=== PATIENT | male | born 1960 | race Caucasian/White ===

== ENCOUNTER 2020-01-31 12:40 | Emergency (ER) | payer OTHER ==
[~2020-01-31] VITALS: Ht 172.7 cm; Wt 74.8 kg
[2020-01-31 13:09] LABS: BASOPHILS 0.6 % (0.0-2.0); EOSINOPHILS 3.2 % (0.0-3.0); HEMOGLOBIN 13.5 gm/dL (14.0-18.0); LYMPHOCYTES 20.3 % (24.0-44.0); MCH 32.1 pg (26.0-34.0); MCHC 33.9 g/dL (28.0-37.0); MCV 94.7 fL (80.0-100.0); MONOCYTES 7.5 % (1.0-8.0); PLATELET COUNT 208 thou/uL (150-400); POLYS 68.4 % (36.0-66.0); RBC 4.22 mil/uL (4.50-6.00); WBC 5.8 thou/uL (4.0-11.0)
[2020-01-31 13:16] LABS: CALCIUM 8.8 mg/dL (8.5-10.1); CREATININE 1.1 mg/dL (0.7-1.3); POTASSIUM 3.9 mmol/L (3.5-5.1)
[2020-01-31 13:22] LABS: ALBUMIN 4.4 g/dL (3.4-5.0); TOTAL BILIRUBIN 0.4 mg/dL (0.2-1.0); TOTAL PROTEIN 7.7 g/dL (6.4-8.2)
[2020-01-31 14:15] LABS: URINE BILIRUBIN NEGATIVE (Negative); URINE BLOOD 1+ (Negative); URINE CLARITY CLEAR; URINE COLOR YELLOW; URINE GLUCOSE-RANDOM* NEGATIVE (Negative); URINE KETONES NEGATIVE (Negative); URINE LEUKOCYTES-REFLEX NEGATIVE (Negative); URINE NITRITE-REFLEX NEGATIVE (Negative); URINE PROTEIN (DIPSTICK) NEGATIVE (Negative); URINE UROBILINOGEN 0.2 E.U./dl (0.2-1.0)
[2020-01-31 14:27] LABS: URINE RBC >20 Many /HPF (0-2)
[2020-01-31 14:28] LABS: URINE WBC-REFLEX 0-5 Rare /HPF (0-5)
[2020-01-31 14:30] LABS: BACTERIA-REFLEX 1-9 Few /HPF (None Seen); CASTS None Seen /LPF (None Seen); CRYSTALS None Seen /LPF (None Seen); SQUAMOUS 0-3 Few /LPF (0-3)
[2020-01-31] MEDS ORDERED: PERCOCET 5-3251 EACH PO (14:39)
[2020-01-31] MEDS ORDERED: TORADOL 10 MG T10 MG PO (14:42)
[2020-01-31] MEDS ORDERED: BACTRIM DS TAB1 EACH PO (14:42)
[2020-01-31] MEDS ORDERED: ONDANSETRON HCL4 M2 PO (14:42)
[2020-01-31 15:57] VITALS: BP 128/74
== END 2020-01-31 15:57 | disposition home or self-care (01) ==
LOC: ER 12:40
PROVIDERS: Physician Assistant
DX: N20.1 Calculus of ureter (principal); Z90.49 Acquired absence of other specified parts of digestive tract